=== PATIENT | female | born 1970 | race Caucasian/White ===

== ENCOUNTER 2016-08-27 05:54 | Emergency (ER) | payer OTHER ==
[~2016-08-27 05:54] MED LIST: IBUPROFEN600 MG PO; IMODIUM A-D2 MG PO; LEVEMIR FL100 UNIT/M SC; LISINOPRIL10 MG PO; LOPRESSOR25 MG PO; MAXALT5 MG PO; NOVOLOG PE100 UNITS/ SC
--- NOTE | 2016-08-27 06:45 | DIAGNOSTIC IMAGING REPORT ---
PROCEDURE: XR HAND 3 OR 4 VIEWS - RIGHT INDICATION: TRAUMA/INJURY TECHNIQUE: Three views. COMPARISON: None. FINDINGS: Osseous structures and joint spaces are normal. IMPRESSION: 1. Normal right hand.
--- NOTE | 2016-08-27 06:46 | ED ORDER SUMMARY ---
..... Patient: SAMMIE OMER OrderSheet [facility] VisitID: [id number] [address] [place] [address] 46y, F Registration Date/Time: 08/27/2016 ORDER SHEET Weight: 104.3 kg (stated) Allergies: Compazine GENERAL ORDERS: Hand 3 or 4V Right Urgent (06:23 08/27/2016 Clarissa CARRILLO) (Ack 6:24 [facility] Tech1) (6:41 Mario) MEDICATION ORDERS: IV FLUIDS: ORDER SHEET NOTES: [Electronically signed by Priscila Forte (07:11 08/27/2016)] [Electronically signed by Lina Gaytan MD (20:59 09/01/2016)] [Electronically locked/signed by Priscila Forte (07:11 08/27/2016)]
--- NOTE | 2016-08-27 06:46 | ED CLINICAL REPORT ---
Clinical Report - Physicians/Mid Levels [facility] [address] [place] [address] 08/27/2016 5:55 Patient: SAMMIE OMER Time Seen: 0611. Arrived- By private vehicle. Historian- patient. HISTORY OF PRESENT ILLNESS Chief Complaint: FALL. Location of injuries- right hand and right knee and left knee. The injury occurred today. (casino). Fell. The patient complains of mild pain in the right lower extremity (knee) and left lower extremity (knee) and moderate pain in the right upper extremity (hand). No blow to the head, neck pain, loss of consciousness or seizure. Not dazed. REVIEW OF SYSTEMS No numbness, dizziness, loss of vision, hearing loss or chest pain. No difficulty breathing, weakness, headache, nausea or abdominal pain. No laceration, fever, vomiting or urinary problems. The patient has no pain on weight bearing. All systems otherwise negative, except as recorded above. PAST HISTORY Problems: Bursitis. Diabetes Mellitus. Sinus Tachycardia. Endometriosis. Degenerative disk disease. Migraine Headache. Hypertension. Additional Surgeries: Ankle. Medications: Metoprolol Tartrate Oral. Lisinopril Oral. Phenergan (Promethazine) Oral. Gabapentin Oral. Allergies: Compazine. SOCIAL HISTORY Never smoker. No alcohol use or drug use. ADDITIONAL NOTES The nursing notes have been reviewed. PHYSICAL EXAM Vital Signs: 08/27/2016 06:14 BP: 162/83. HR: 91. RR: 20. O2 saturation: 98%. Temp: 97.7 F. Pain level now: 8/10. Have been reviewed. Appearance: Alert. Oriented X3. No acute distress. Head: Head non-tender. No swelling of head. Eyes: Pupils equal, round and reactive to light. EOM intact. ENT: No dental injury. Neck: Painless ROM. Non-tender. CVS: Heart sounds normal. Pulses normal. Respiratory: Breath sounds normal. Chest nontender. Abdomen: No visible injury. Soft and nontender. Back: No tenderness. ROM normal. Skin: Skin warm and dry. Normal skin color. Normal skin turgor. Extremities: Right hand: mild tenderness and swelling localized to the thenar area of the hand. Neurovascular intact distally. No erythema, laceration, abrasion, ecchymosis or puncture wound. No foreign body or deformity. (Pt has slight abrasions on both knees, with no deformity or edema. She ambulates to the bathroom without difficulty in the ED.). Neuro: No motor deficit. No sensory deficit. (Alert, grossly oriented.). LABS, X-RAYS, AND EKG Rt Hand X-ray: No fracture. Normal alignment. No bony lesion, air in the soft tissue or foreign body. Soft tissues normal. Joint spaces normal. Views: AP, lateral and oblique. Technique: good. The X-rays were independently viewed by me and interpreted contemporaneously by me. Prior films were not available for comparison. Pulse Oximetry: 08/27/2016 06:14 O2 saturation: 98%. (FIO2 - room air). Interpretation: normal. PROGRESS AND PROCEDURES Course of Care: R hand x-ray was negative. No evidence of serious injury. Patient counseled in person regarding the patient's stable condition, test results, diagnosis and need for follow-up. Concerns were addressed. Old medical records reviewed. Disposition: Discharged. Condition: stable. CLINICAL IMPRESSION Multiple contusions to the right hand and right knee. Fall on same level by stumbling. INSTRUCTIONS (Your x-rays look great. Your knee shows no signs of being broken. Please use ice, ibuprofen and Tylenol, as needed for discomfort.). Warnings: GENERAL WARNINGS: Return or contact your physician immediately if your condition worsens or changes unexpectedly, if not improving as expected, or if other problems arise. Your Current Medications: CONTINUE TAKING THE FOLLOWING MEDICATIONS: Gabapentin Oral. Lisinopril Oral. Metoprolol Tartrate Oral. Phenergan (Promethazine) Oral. Follow-up: Follow up with your doctor as needed. Understanding of the discharge instructions verbalized by patient. (Electronically signed by Lina Gaytan MD 09/01/2016 20:59)
--- NOTE | 2016-08-27 06:46 | ED ORDER SUMMARY ---
..... Patient: SAMMIE OMER OrderSheet [facility] VisitID: [id number] [address] [place] [address] 46y, F Registration Date/Time: 08/27/2016 ORDER SHEET Weight: 104.3 kg (stated) Allergies: Compazine GENERAL ORDERS: Hand 3 or 4V Right Urgent (06:23 08/27/2016 Clarissa CARRILLO) (Ack 6:24 [facility] Tech1) (6:41 Mario) MEDICATION ORDERS: IV FLUIDS: ORDER SHEET NOTES: [Electronically signed by Priscila Forte (07:11 08/27/2016)] [Electronically signed by Lina Gaytan MD (20:59 09/01/2016)] [Electronically locked/signed by Priscila Forte (07:11 08/27/2016)]
--- NOTE | 2016-08-27 06:46 | ED NURSING NOTES ---
Clinical Report - Nurses [facility] [address] [place] [address] 08/27/2016 5:55 [id number] TRI[facility] Triage time 06:03 Aug 27 2016. Chief Complaint: FALL while walking. 06:04 08/27/16. --06:04 Priscila Forte Acuity: LEVEL 3. 06:18 08/27/16. SEPSIS SCREEN: Sepsis Screen: negative. Negative (no infection suspected/documented). POOJA COMA SCORE: [place] Coma Scale: 15- eyes open spontaneously (4); best verbal response- oriented x 4 (5); best motor response- obeys commands (6). --06:18 Priscila Forte 06:14 08/27/16. BP: 162/83. HR: 91. RR: 20. O2 saturation: 98% on room air. Temp: 97.7 F (oral). Pain level now: 03/04. --06:18 Priscila Forte. Weight: 104.3 kg stated. Height/Length: 62 inches Per Patient. BMI: 42.1. --06:17 Priscila Forte. Medications Gabapentin Oral. --06:15 Priscila Forte Phenergan (Promethazine) Oral. --06:15 Priscila Forte Lisinopril Oral. --06:16 Priscila Forte Metoprolol Tartrate Oral. --06:16 Priscila Forte. Medication/allergy information source: the patient. --06:18 Priscila Forte. Allergies Compazine. --07:08 Priscila Forte. History Arrived by private vehicle. Historian: patient. Unaccompanied. Location of injuries: right hand and right knee. This occurred just prior to arrival. Occurred (Leroy). --06:04 Priscila Forte ( While RN trying to triage patient taking phone calls and then ambulated to restroom. Patient in restroom for extended period. Patient returned to triage room and RN completed intake.). --06:13 Priscila Forte This occurred last night. ( Patient states that she was walking when she tripped and fell onto her knees with right hand extended. She reports injuries to her knees and right hand). PAST MEDICAL HX: Immunizations: up-to-date. Last normal menstrual period- September. SOCIAL HX: Never smoker. No alcohol use or drug use. No infectious disease exposure. ABUSE ASSESSMENT: No report of abuse. FALL RISK ASSESSMENT: Fall risk assessment completed. No fall risk identified. NUTRITIONAL RISK ASSESSMENT: The nutritional risk assessment revealed no deficiencies. FUNCTIONAL ASSESSMENT: Functional assessment: no impairments noted. LEARNING NEEDS ASSESSMENT: The learning needs assessment revealed no barriers. SKIN INTEGRITY ASSESSMENT: Skin integrity risk assessment completed. No skin integrity risk identified. --06:18 Priscila Forte. Interventions ID band on patient. To treatment room. --06:18 Priscila Foret. PHYSICAL ASSESSMENT Ambulatory to room. GENERAL / NEURO / PSYCH: Alert. Oriented X 4. Appears in no acute distress. RESPIRATORY: Respirations not labored. EXTREMITIES: Right hand: tenderness. Right knee: tenderness. SKIN: Skin is warm and dry. --06:18 Priscila Forte. NURSING PROGRESS NOTES 06:19 08/27/16. Cold pack applied. Reassurance given to the patient. Two patient identifiers checked. Call light placed in reach. Side rails up x 1. Bed placed in lowest position. Brakes of bed on. Patient ready for evaluation- chart flagged. --06:19 Priscila Forte. DISPOSITION / DISCHARGE 07:07 08/27/16. Condition at departure: stable. Learning barriers present. Ability to learn limited by poor cooperation. Learning barriers note: Patient falling asleep during discharge teaching. Patient verbalized understanding. Written instructions provided in [place] Verdean. ( Take Motrin or Tylenol and ice affected extremity. Follow up with PCP as needed.). The patient was discharged by the physician. She was discharged home and accompanied by pediatric licensed practical nurse. She left the Emergency Department ambulatory and via private vehicle. Fifth Hand driving. --07: Priscila Forte 07:05 08/27/16. BP: 142/80. HR: 84. RR: 20. O2 saturation: 97% on room air. Temp: deferred. Pain level now: 03/04. --07:07 Priscila Foret. Locked/Released at 08/27/2016 7:11 by Priscila Forte,
--- NOTE | 2016-08-27 06:46 | ED NURSING NOTES ---
Clinical Report - Nurses [facility] [address] [place] [address] 08/27/2016 5:55 [id number] TRI[facility] Triage time 06:03 Aug 27 2016. Chief Complaint: FALL while walking. 06:04 08/27/16. --06:04 Priscila Forte Acuity: LEVEL 3. 06:18 08/27/16. SEPSIS SCREEN: Sepsis Screen: negative. Negative (no infection suspected/documented). POOJA COMA SCORE: [place] Coma Scale: 15- eyes open spontaneously (4); best verbal response- oriented x 4 (5); best motor response- obeys commands (6). --06:18 Priscila Forte 06:14 08/27/16. BP: 162/83. HR: 91. RR: 20. O2 saturation: 98% on room air. Temp: 97.7 F (oral). Pain level now: 03/04. --06:18 Priscila Forte. Weight: 104.3 kg stated. Height/Length: 62 inches Per Patient. BMI: 42.1. --06:17 Priscila Forte. Medications Gabapentin Oral. --06:15 Priscila Forte Phenergan (Promethazine) Oral. --06:15 Priscila Forte Lisinopril Oral. --06:16 Priscila Forte Metoprolol Tartrate Oral. --06:16 Priscila Forte. Medication/allergy information source: the patient. --06:18 Priscila Forte. Allergies Compazine. --07:08 Priscila Forte. History Arrived by private vehicle. Historian: patient. Unaccompanied. Location of injuries: right hand and right knee. This occurred just prior to arrival. Occurred (Leroy). --06:04 Priscila Forte ( While RN trying to triage patient taking phone calls and then ambulated to restroom. Patient in restroom for extended period. Patient returned to triage room and RN completed intake.). --06:13 Priscila Forte This occurred last night. ( Patient states that she was walking when she tripped and fell onto her knees with right hand extended. She reports injuries to her knees and right hand). PAST MEDICAL HX: Immunizations: up-to-date. Last normal menstrual period- September. SOCIAL HX: Never smoker. No alcohol use or drug use. No infectious disease exposure. ABUSE ASSESSMENT: No report of abuse. FALL RISK ASSESSMENT: Fall risk assessment completed. No fall risk identified. NUTRITIONAL RISK ASSESSMENT: The nutritional risk assessment revealed no deficiencies. FUNCTIONAL ASSESSMENT: Functional assessment: no impairments noted. LEARNING NEEDS ASSESSMENT: The learning needs assessment revealed no barriers. SKIN INTEGRITY ASSESSMENT: Skin integrity risk assessment completed. No skin integrity risk identified. --06:18 Priscila Forte. Interventions ID band on patient. To treatment room. --06:18 Priscila Forte. PHYSICAL ASSESSMENT Ambulatory to room. GENERAL / NEURO / PSYCH: Alert. Oriented X 4. Appears in no acute distress. RESPIRATORY: Respirations not labored. EXTREMITIES: Right hand: tenderness. Right knee: tenderness. SKIN: Skin is warm and dry. --06:18 Priscila Forte. NURSING PROGRESS NOTES 06:19 08/27/16. Cold pack applied. Reassurance given to the patient. Two patient identifiers checked. Call light placed in reach. Side rails up x 1. Bed placed in lowest position. Brakes of bed on. Patient ready for evaluation- chart flagged. --06:19 Priscila Forte. DISPOSITION / DISCHARGE 07:07 08/27/16. Condition at departure: stable. Learning barriers present. Ability to learn limited by poor cooperation. Learning barriers note: Patient falling asleep during discharge teaching. Patient verbalized understanding. Written instructions provided in Niuean. ( Take Motrin or Tylenol and ice affected extremity. Follow up with PCP as needed.). The patient was discharged by the physician. She was discharged home and accompanied by enrollment coordinator. She left the Emergency Department ambulatory and via private vehicle. Concrete Mixer Truck Driver driving. --07: Priscila Forte 07:05 08/27/16. BP: 142/80. HR: 84. RR: 20. O2 saturation: 97% on room air. Temp: deferred. Pain level now: 03/04. --07:07 Priscila Fotre. Locked/Released at 08/27/2016 7:11 by Priscila Forte,
--- NOTE | 2016-09-01 21:00 | ED MED RECONCILIATION SUMMARY ---
Patient: SHEILA OMERMARCELLA Greer Medication Reconciliation Report [facility] VisitID: [id number] [address] [place] [address] 46y, F Registration Date/Time: 08/27/2016 Weight: 104.3 kg Height/Length: 62 in. BMI: 42.1 ALLERGIES: Compazine The patient's Home Medications are listed below: CONTINUE TAKING THE FOLLOWING MEDICATIONS: Gabapentin Oral Lisinopril Oral Metoprolol Tartrate Oral Phenergan (Promethazine) Oral The source(s) of the original Home Medication information: patient The following Medications were given to the patient in the Emergency Department: None. The following Medications were prescribed to the patient: None.
--- NOTE | 2016-09-01 21:00 | ED DISCHARGE INSTRUCTIONS ---
Patient: SAMMIE OMER General Instructions [facility] VisitID: [id number] [place] [address] 46y, F Registration Date/Time: 08/27/2016 Multiple contusions to the right hand and right knee. Fall on same level by stumbling. INSTRUCTIONS (Your x-rays look great. Your knee shows no signs of being broken. Please use ice, ibuprofen and Tylenol, as needed for discomfort.). Warnings: GENERAL WARNINGS: Return or contact your physician immediately if your condition worsens or changes unexpectedly, if not improving as expected, or if other problems arise. Your Current Medications: CONTINUE TAKING THE FOLLOWING MEDICATIONS: Gabapentin Oral. Lisinopril Oral. Metoprolol Tartrate Oral. Phenergan (Promethazine) Oral. Follow-up: Follow up with your doctor as needed. Understanding of the discharge instructions verbalized by patient. ADDITIONAL INFORMATION Mechanical Fall You have had a fall today. It appears that the cause is mechanical. That means that you slipped, tripped or lost your balance. If your fall had been due to fainting or a seizure, further tests would be required. Home Care: Rest today and resume your normal activities when you are feeling back to normal. If you were injured during the fall, follow the advice from your doctor regarding care of your injury. You may use acetaminophen (Tylenol) or ibuprofen (Motrin, Advil) to control pain, unless another pain medicine was prescribed. [NOTE: If you have chronic liver or kidney disease or ever had a stomach ulcer or GI bleeding, talk with your doctor before using these medicines.] Fall Prevention: Was there anything that caused your fall that can be fixed, removed, or replaced? Make your home safe by keeping walkways clear of objects you may trip over. Use non-slip pads under rugs. Do not walk in poorly lit areas. Do not stand on chairs or wobbly ladders. Use caution when reaching overhead or looking upward. This position can cause a loss of balance. Be sure your shoes fit properly, have non-slip bottoms and are in good condition. Be cautious when going up and down curbs, and walking on uneven sidewalks. If your balance is poor, consider using a cane or walker. Stay as active as you can. Balance, flexibility, strength, and endurance all come from exercise. They all play a role in preventing falls. Follow Up with your doctor or as advised by our staff. Get Prompt Medical Attention if any of the following occur: Repeated mechanical falls, or unexplained falls Dizziness, fainting or seizure Severe headache Chest pain or shortness of breath Palpitations (very rapid or very slow or irregular heartbeat) Blood in vomit, stools (black or red color) Weakness of an arm or leg or one side of the face Difficulty with speech or vision You have been given the following additional information: Fall, Mechanical (Electronically signed by Lina Gaytan MD 09/01/2016 20:59)
--- NOTE | 2016-09-01 21:00 | ED MAR SUMMARY ---
..... Medication Administration Record [facility] [address] [place], [place] [id number] Patient: SAMMIE OMER Visit ID: [id number] 46y, F Weight: 104.3 kg Height/Length: 62 in BMI: 42.1 ALLERGIES: Compazine
--- NOTE | 2016-09-01 21:00 | ED MED RECONCILIATION SUMMARY ---
Patient: SHEILA OMERMARCELLA Greer Medication Reconciliation Report [facility] VisitID: [id number] [address] [place] [address] 46y, F Registration Date/Time: 08/27/2016 Weight: 104.3 kg Height/Length: 62 in. BMI: 42.1 ALLERGIES: Compazine The patient's Home Medications are listed below: CONTINUE TAKING THE FOLLOWING MEDICATIONS: Gabapentin Oral Lisinopril Oral Metoprolol Tartrate Oral Phenergan (Promethazine) Oral The source(s) of the original Home Medication information: patient The following Medications were given to the patient in the Emergency Department: None. The following Medications were prescribed to the patient: None.
--- NOTE | 2016-09-01 21:00 | ED MAR SUMMARY ---
..... Medication Administration Record [facility] [address] [place], [place] [id number] Patient: SAMMIE OMER Visit ID: [id number] 46y, F Weight: 104.3 kg Height/Length: 62 in BMI: 42.1 ALLERGIES: Compazine
== END 2016-08-27 07:05 | disposition home or self-care (01) ==
LOC: ED SRH 05:54
DX: S80.01XA Contusion of right knee, initial encounter (principal); S60.221A Contusion of right hand, initial encounter; W01.0XXA Fall on same level from slipping, tripping and stumbling without subsequent striking against object, initial encounter; Y93.9 Activity, unspecified; Y99.9 Unspecified external cause status; Y92.59 Other trade areas as the place of occurrence of the external cause; Z79.899 Other long term (current) drug therapy

== ENCOUNTER 2016-11-15 01:48 | Emergency (ER) | payer OTHER ==
--- NOTE | 2016-11-15 03:54 | ED NURSING NOTES ---
Clinical Report - Nurses Merged [facility] [address] [place] [address] 11/15/2016 1:48 Patient: SAMMIE OMER TRIAGE Triage time 01:54. Acuity: LEVEL 3. Chief Complaint: (hypertension). J[place] COMA SCORE: [place] Coma Scale: 15- eyes open spontaneously (4); best verbal response- oriented x 4 (5); best motor response- obeys commands (6). --02:01 Primo Olvera 01:54 11/15/16. BP: 183/90. HR: 105. RR: 18. O2 saturation: 97%. Temp: 98.4 F. Pain level now: 11/02. --02:01 Primo Olvera Weight: 108.8 kg. Height/Length: 62 inches. BMI: 43.9. --01:57 Kam Olvera. Medications Gabapentin Oral. Lisinopril Oral. Metoprolol Tartrate Oral. Phenergan (Promethazine) Oral. --01:56 Kam Olvera. Allergies Compazine. --01:55 Kam Olvera. History Arrived by private vehicle. Historian: patient. Accompanied by family. This is a recurrent problem. (3 days). Treatment ENGINEER: None. PAST MEDICAL HX: Immunizations: up-to-date. SOCIAL HX: Never smoker. No alcohol use or drug use. No infectious disease exposure. SELF HARM ASSESSMENT: A self harm assessment was performed. The patient answered "no" to the question "Have you recently felt down, depressed, or hopeless?", "Have you noticed less interest or pleasure in doing things?", "Do you have thoughts of harming or killing yourself?", "Are you here because you tried to hurt yourself?", "Have you ever tried to hurt yourself before today?", "Have you recently had thoughts about harming or killing others?" and "Do you have any dangerous items in your possession?". FALL RISK ASSESSMENT: Fall risk assessment completed. No fall risk identified. NUTRITIONAL RISK ASSESSMENT: The nutritional risk assessment revealed no deficiencies. FUNCTIONAL ASSESSMENT: Functional assessment: no impairments noted. LEARNING NEEDS ASSESSMENT: The learning needs assessment revealed no barriers. ABUSE ASSESSMENT: Abuse assessment: The patient was asked "Do you feel safe in your home?". SKIN INTEGRITY ASSESSMENT: Skin integrity risk assessment completed. No skin integrity risk identified. --02:01 Primo Olvera PROBLEMS: Contusion. Fall. Bursitis. Diabetes Mellitus. Sinus Tachycardia. Endometriosis. Degenerative disk disease. Migraine Headache. Hypertension. --01:56 Kam Olvera. ADDITIONAL SURGERIES: Ankle. --01:56 Kam Olvera. Interventions ID band on patient. To treatment room. --02: Primo Olvera PHYSICAL ASSESSMENT Ambulatory to room. GENERAL / NEURO / PSYCH: Alert. Oriented X 4. Appears in no acute distress. HEENT: Pupils equal, round and reactive to light. No facial asymmetry noted. Mucous membranes are pink. RESPIRATORY: Respirations not labored. Chest nontender. Breath sounds within normal limits. CVS: Normal sinus rhythm noted. Capillary refill less than 2 seconds. Pulses within normal limits. GI / : Abdomen soft and nontender and normal bowel sounds. SKIN: Skin intact. Skin is warm and dry. Normal skin turgor. --02:02 Primo Olvera NURSING PROGRESS NOTES hall monitor, pulse oximeter and NIBP monitor placed on patient. Patient gowned. Patient identifiers checked. Call light placed in reach. Side rails up x 1. Bed placed in lowest position. Brakes of bed on. --02:02 Primo Olvera 02:14 11/15/2016 Site #1 started via IV in the left antecubital space with an 20g angiocath, with aseptic technique and good blood return; one attempt. Blood drawn: rainbow set. Labeled in the presence of the patient and sent to the lab. Saline lock flushed with 10 mL saline. --02:14 Priscila Forte EKG time: (02:15). EKG was performed by a nurse and shown to the ED physician. --02:15 Primo Olvera 02:16 11/15/16. BP: 154/85. HR: 94. RR: 18. O2 saturation: 95%. Temp: deferred. Pain level now: 11/02. --02:16 Primo Olvera ( ice chips given to pt). --03:24 Primo Olvera ( pt now complains of nausea took ice chips away from pt, orders received from ). --03:27 Primo Olvera 03:36 11/15/2016 Morphine IVP 4 mg given over 2 minute(s) via site #1. Allergies verified, confirmed 5 rights and sedative warning given to the patient. IV patency established. IV site checked: no pain, redness, or swelling. IV flushed thoroughly pre- and post-medication administration. IVP given by RN. --03:36 Primo Olvera 03:36 11/15/2016 PHENERGAN (Promethazine HCl) IVP 25 mg given over 2 minute(s) via site #1. Allergies verified and confirmed 5 rights. IV patency established. IV site checked: no pain, redness, or swelling. IV flushed thoroughly pre- and post-medication administration. IVP given by RN. --03:37 Primo Olvera 03:40 11/15/16. BP: 155/94. HR: 89. RR: 16. O2 saturation: 95%. Temp: deferred. --03:41 Primo Olvera DISPOSITION / DISCHARGE 04:08 11/15/2016 Site #1 removed upon discharge. Catheter intact. Bandaid applied. --04:08 Primo Olvera Departure time: 04:05. Condition at departure: improved. No learning barriers present. Discharge instructions provided and reviewed with the patient. Patient verbalized understanding. Written instructions provided in Spanish. No warning instructions, medication instructions, treatment instructions, referrals given to the patient or diet instructions. No activity restrictions, note given, follow up contact number given or stop smoking instructions. The patient was discharged by the physician. She was discharged home and accompanied by plane tender. She left the Emergency Department ambulatory and via private vehicle. Unmanned Equipment Operator driving. FALL RISK ASSESSMENT: Fall risk assessment completed. No fall risk identified. --04:09 Primo Olvera 04:07 11/15/16. BP: 157/96. HR: 88. RR: 16. O2 saturation: 95%. Temp: deferred. Pain level now: 0/10. --04:09 Primo Olvera Locked/Released at 11/15/2016 4:09 by Primo Olvera
--- NOTE | 2016-11-15 03:54 | ED ORDER SUMMARY ---
..... Patient: SAMMIE OMER OrderSheet [facility] VisitID: [id number] [address] [place] [address] 46y, F Registration Date/Time: 11/15/2016 ORDER SHEET Weight: 108.8 kg Allergies: Compazine GENERAL ORDERS: CBC w Diff Urgent (02:21 11/15/2016 TBowen R.N. per protocol) (2:22 TBowen R.N.) CMP Urgent (02:11/15/2016 TBowen R.N. per protocol) (2:22 TBowen R.N.) Troponin-I Urgent (02:11/15/2016 TBowen R.N. per protocol) (2:22 TBowen R.N.) Pulse oximeter (02:11/15/2016 TBowen R.N. per protocol) (2:22 TBowen R.N.) EKG - ER Stat (02:11/15/2016 TBowen R.N. per protocol) (2:22 TBowen R.N.) Chest 2V Urgent (02:23 11/15/2016 Megan Jurado) (Ack 2:24 AMcQuoid ER Tech1) (2:30 RFay) D-Dimer Urgent (02:46 11/15/2016 Megan Jurado) (2:47 AMcQuoid ER Tech1) MEDICATION ORDERS: Phenergan IV 25 mg (HIGH ALERT MEDICATION, NOW) (03:25 11/15/2016 Megan Jurado) (3:37 TBowen R.N.) IV FLUIDS: Morphine IV 4 mg (HIGH ALERT MEDICATION, NOW) (03:25 11/15/2016 Megan Jurado) (3:36 TBowen R.N.) ORDER SHEET NOTES: [Electronically signed by Marysol Gomez R.N. (04:09 11/15/2016)] [Electronically signed by Angel Luis Cardenas Dr. (21:42 11/21/2016)] [Electronically locked/signed by Marysol Gomez R.N. (04:09 11/15/2016)]
--- NOTE | 2016-11-15 03:54 | ED ORDER SUMMARY ---
..... Patient: SAMMIE OMER OrderSheet [facility] VisitID: [id number] [address] [place] [address] 46y, F Registration Date/Time: 11/15/2016 ORDER SHEET Weight: 108.8 kg Allergies: Compazine GENERAL ORDERS: CBC w Diff Urgent (02:21 11/15/2016 TBowen R.N. per protocol) (2:22 TBowen R.N.) CMP Urgent (02:11/15/2016 TBowen R.N. per protocol) (2:22 TBowen R.N.) Troponin-I Urgent (02:11/15/2016 TBowen R.N. per protocol) (2:22 TBowen R.N.) Pulse oximeter (02:11/15/2016 TBowen R.N. per protocol) (2:22 TBowen R.N.) EKG - ER Stat (02:11/15/2016 TBowen R.N. per protocol) (2:22 TBowen R.N.) Chest 2V Urgent (02:23 11/15/2016 Megan Jurado) (Ack 2:24 AMcQuoid ER Tech1) (2:30 RFay) D-Dimer Urgent (02:46 11/15/2016 Megan Jurado) (2:47 AMcQuoid ER Tech1) MEDICATION ORDERS: Phenergan IV 25 mg (HIGH ALERT MEDICATION, NOW) (03:25 11/15/2016 Megan Jurado) (3:37 TBowen R.N.) IV FLUIDS: Morphine IV 4 mg (HIGH ALERT MEDICATION, NOW) (03:25 11/15/2016 Megan Jurado) (3:36 TBowen R.N.) ORDER SHEET NOTES: [Electronically signed by Marysol Gomez R.N. (04:09 11/15/2016)] [Electronically signed by Angel Luis Cardenas Dr. (21:42 11/21/2016)] [Electronically locked/signed by Marysol Gomez R.N. (04:09 11/15/2016)]
--- NOTE | 2016-11-15 03:54 | ED CLINICAL REPORT ---
Clinical Report - Physicians/Mid Levels [facility] [address] [place] [address] 11/15/2016 1:48 Patient: SAMMIE OMER Time Seen: 0215. Arrived- By private vehicle. Historian- patient. HISTORY OF PRESENT ILLNESS Chief Complaint: CHEST PAIN. At its maximum, severity described as mild. When seen in the E.D., severity described as mild. Modifying factors. Not worsened by anything. Not relieved by anything. This started past several days and is still present (unchanged). It was abrupt in onset and has been constant but is not gone now. Onset during rest. It is described as pressure and it is described as located in the central chest area. No radiation. No nausea, vomiting, difficulty breathing or diaphoresis. No additional chest pain. (no hemoptysis, recent surgeries/trauma, or unilateral leg swelling.). Similar symptoms previously: None. Recent medical care: Not recently seen/assessed. REVIEW OF SYSTEMS No fever, chills, pedal edema or calf pain. All systems otherwise negative, except as recorded above. PAST HISTORY See nurses notes. Denies the following risk factors for DVT/PE - history of DVT and pulmonary embolism, recent surgery, recent [place] and congestive heart failure. Denies the following risk factors for DVT/PE - cancer, clotting disorder, estrogens, obesity and immobility. Denies the following risk factors for DVT/PE - advanced in age and vena cava filter. SOCIAL HISTORY Never smoker. No alcohol use or drug use. No recent travel. Is a local resident. FAMILY HISTORY History of heart disease (no early family history). ADDITIONAL NOTES The nursing notes have been reviewed. PHYSICAL EXAM Vital Signs: 11/15/2016 02:16 BP: 154/85. HR: 94. RR: 18. O2 saturation: 95%. Pain level now: 11/02. 11/15/2016 01:54 BP: 183/90. HR: 105. RR: 18. O2 saturation: 97%. Temp: 98.4 F. Pain level now: 11/02. Blood pressure normal. Oxygen saturation normal. Appearance: Alert. Oriented X3. No acute distress. Eyes: Pupils equal, round and reactive to light. Eyes normal inspection. ENT: Ears normal. Nose normal. Pharynx normal. Neck: Normal inspection. Neck supple. No JVD. CVS: Normal heart rate and rhythm. Heart sounds normal. Pulses normal. No decreased pulses. Respiratory: No respiratory distress. Breath sounds normal. Chest nontender. No rales, rhonchi or wheezes. Abdomen: Soft and nontender. Bowel sounds normal. No organomegaly. No mass. Back: Normal external inspection. Skin: Skin warm and dry. Normal skin color. No rash. Normal skin turgor. Extremities: Extremities exhibit normal ROM. No lower extremity edema. Neuro: Oriented X 3. No motor deficit. No sensory deficit. LABS, X-RAYS, AND EKG EKG: Narrow-complex tachycardia (108). Sinus tachycardia. Normal P waves. Normal MARIELLE. Normal QRS complex. Normal axis. Normal ST and T waves, QT and QTc. Normal EKG. The study has been interpreted contemporaneously. The study has been independently viewed by me. The EKG appears to be a good tracing. Chest X-ray: Normal Chest X-Ray. Laboratory Tests: CBC w Diff: (JESSE: 11/15/2016 02:00) ( MsgRcvd 11/15/2016 02:31) Final results Test Result Flag Units (Reference) WHITE BLOOD COUNT 8.9 K/uL (4.5-11.5) RED BLOOD COUNT 4.62 M/uL (4.00-5.20) HEMOGLOBIN 13.5 gm/dL (12.0-16.0) HEMATOCRIT 40.7 % (36.0-46.0) MEAN CELL VOLUME 88 fL (80-100) MEAN CORPUSCULAR HGB 29 pg (26-34) MEAN CORPUSCULAR HGB CONC 33 g/dL (31-37) RED CELL DISTRIBUTION WIDTH 14.1 % (11.6-14.8) PLATELET COUNT 311 K/uL (150-400) NEUTROPHIL % 55.6 % (50-75) LYMPH % 34.5 % (25-40) MONO % 8.5 % (3-14) EOSINOPHIL % 1.2 % (0-4) BASOPHIL % 0.2 % (0-2) [id number]: (JESSE: 11/15/2016 02:00) ( MsgRcvd 11/15/2016 02:59) Final results Test Result Flag Units (Reference) D-DIMER QUANTITATIVE < 0.27 L ug/mLFEU (0.27-0.52) The primary value of this quantitative assay relates toits negative predictive value (i.e. exclusion) of pulmonaryembolism/deep vein thrombosis/DIC.Elevated levels of d-dimer may also occur with:, age, cancer, inflammation, liver disease,post-op, infection, hematoma, coronary disease, peripheralarteriopathy, bleeding disorders and thrombolytic treatment.Results should be correlated with other clinical andradiological data.Testing Methodology: Latex Immunoassay CMP: (JESSE: 11/15/2016 02:00) ( MsgRcvd 11/15/2016 02:47) Final results Test Result Flag Units (Reference) GLUCOSE 161 H mg/dL (70-110) BUN 17 mg/dL (7-18) CREATININE 0.8 mg/dL (0.6-1.3) Estimated GFR >60 mL/min Estimated GFR- >60 mL/min Note: Persistent reduction over 3 months in eGFR<60 mL/min/1.73 m2 defines CKD. Patients with eGFR values>=60 mL/min/1.73 m2 may also have CKD if evidence ofpersistent proteinuria. Additional information may be foundat [email or web address].org. SODIUM 140 mmol/L (136-145) POTASSIUM 3.5 mmol/L (3.5-5.1) CHLORIDE 102 mmol/L (98-107) CARBON DIOXIDE 27 mmol/L (21-32) CALCIUM 9.3 mg/dL (8.5-10.1) TOTAL PROTEIN 8.2 g/dL (6.4-8.2) ALBUMIN 4.0 g/dL (3.3-5.0) BILIRUBIN, TOTAL 0.8 mg/dL (0.0-1.0) ALKALINE PHOSPHATASE 125 H U/L (46-116) AST (SGOT) 16 U/L (15-37) ALT (SGPT) 32 U/L (12-78) TROPONIN I <0.05 L ng/mL (0.00-1.5) TROPONIN REFERENCE RANGE:<0.1 NEGATIVE0.1-1.5 INDETERMINANT>1.5 POSITIVE . PROGRESS AND PROCEDURES Course of Care: the patient is a pleasant 46-year-old no presented for evaluation of chest pain. patient at low risk for AMI. Patient to be evaluated for AMI, PE, thoracic AA, pneumonia, and peumothorax. Patient agreeable to the treatment and plan. Offers of pain medications made. Trop x 1 needed based on time course of illness. Patient work up is negative. D-dimer noted to be negative. Trop negative. No other acute abnormalities. Patient with improved vitals while here in the ED. Patient also with resolved pain. Do not feel patient has an acute abnormality requiring admission to the hospital or further ED work up. patient instructed to follow up with cardiology for further risk stratification. Patient stable outpatient candidate. Reevaluation continues to be benign. CLINICAL IMPRESSION Chest pain characterized as "pressure" .12 lead EKG performed. 11/15/2016 03:40 BP: 155/94. HR: 89. RR: 16. O2 saturation: 95%. Blood pressure normal. Oxygen saturation normal. Essential hypertension (acute). INSTRUCTIONS Warnings: GENERAL WARNINGS: Return or contact your physician immediately if your condition worsens or changes unexpectedly, if not improving as expected, or if other problems arise. SPECIFICALLY, return if you develop chest, neck, jaw, shoulder, arm, or back pain, difficulty breathing, a fluttering sensation in your chest, lightheadedness, fainting, excessive fatigue, or sudden sweating. Your Current Medications: CONTINUE TAKING THE FOLLOWING MEDICATIONS: Gabapentin Oral. Lisinopril Oral. Metoprolol Tartrate Oral. Phenergan (Promethazine) Oral. Follow-up: Return to the emergency department as needed. Follow up with your doctor in three days. Reason for referral: recheck today's concerns. Summary of care provided to patient via paper. Screening today revealed the patient's blood pressure to be in the hypertensive range. Blood pressure screening was not performed during this visit because the patient has an active diagnosis of hypertension. The patient should follow up with a primary care provider for blood pressure management. Understanding of the discharge instructions verbalized by patient. Follow-up with: Alen Pace MD, Cardiology, , [facility], [address], [facility], [address] Follow up in three days. Reason for referral: recheck today's concerns. Summary of care provided to patient via paper. (Electronically signed by Angel Luis Cardenas Dr. 11/21/2016 21:42)
--- NOTE | 2016-11-15 03:54 | ED NURSING NOTES ---
Clinical Report - Nurses [facility] [address] [place] [address] 11/15/2016 1:48 Patient: SAMMIE OMER TRIAGE Triage time 01:54. Acuity: LEVEL 3. Chief Complaint: (hypertension). JOHNSON COMA SCORE: Johnson Coma Scale: 15- eyes open spontaneously (4); best verbal response- oriented x 4 (5); best motor response- obeys commands (6). --02:01 Primo Olvera 01:54 11/15/16. BP: 183/90. HR: 105. RR: 18. O2 saturation: 97%. Temp: 98.4 F. Pain level now: 11/02. --02:01 Primo Olvera Weight: 108.8 kg. Height/Length: 62 inches. BMI: 43.9. --01:57 Kam Olvera. Medications Gabapentin Oral. Lisinopril Oral. Metoprolol Tartrate Oral. Phenergan (Promethazine) Oral. --01:56 Kam Olvera. Allergies Compazine. --01:55 Kam Olvera. History Arrived by private vehicle. Historian: patient. Accompanied by family. This is a recurrent problem. (3 days). Treatment CAPTAIN OF GUARDS: None. PAST MEDICAL HX: Immunizations: up-to-date. SOCIAL HX: Never smoker. No alcohol use or drug use. No infectious disease exposure. SELF HARM ASSESSMENT: A self harm assessment was performed. The patient answered "no" to the question "Have you recently felt down, depressed, or hopeless?", "Have you noticed less interest or pleasure in doing things?", "Do you have thoughts of harming or killing yourself?", "Are you here because you tried to hurt yourself?", "Have you ever tried to hurt yourself before today?", "Have you recently had thoughts about harming or killing others?" and "Do you have any dangerous items in your possession?". FALL RISK ASSESSMENT: Fall risk assessment completed. No fall risk identified. NUTRITIONAL RISK ASSESSMENT: The nutritional risk assessment revealed no deficiencies. FUNCTIONAL ASSESSMENT: Functional assessment: no impairments noted. LEARNING NEEDS ASSESSMENT: The learning needs assessment revealed no barriers. ABUSE ASSESSMENT: Abuse assessment: The patient was asked "Do you feel safe in your home?". SKIN INTEGRITY ASSESSMENT: Skin integrity risk assessment completed. No skin integrity risk identified. --02:01 Primo Olvera PROBLEMS: Contusion. Fall. Bursitis. Diabetes Mellitus. Sinus Tachycardia. Endometriosis. Degenerative disk disease. Migraine Headache. Hypertension. --01:56 Kam Olvera. ADDITIONAL SURGERIES: Ankle. --01:56 Kam Olvera. Interventions ID band on patient. To treatment room. --02: Primo Olvera PHYSICAL ASSESSMENT Ambulatory to room. GENERAL / NEURO / PSYCH: Alert. Oriented X 4. Appears in no acute distress. HEENT: Pupils equal, round and reactive to light. No facial asymmetry noted. Mucous membranes are pink. RESPIRATORY: Respirations not labored. Chest nontender. Breath sounds within normal limits. CVS: Normal sinus rhythm noted. Capillary refill less than 2 seconds. Pulses within normal limits. GI / : Abdomen soft and nontender and normal bowel sounds. SKIN: Skin intact. Skin is warm and dry. Normal skin turgor. --02:02 Primo Olvera NURSING PROGRESS NOTES boat joiner, pulse oximeter and NIBP monitor placed on patient. Patient gowned. Patient identifiers checked. Call light placed in reach. Side rails up x 1. Bed placed in lowest position. Brakes of bed on. --02:02 Primo Olvera 02:14 11/15/2016 Site #1 started via IV in the left antecubital space with an 20g angiocath, with aseptic technique and good blood return; one attempt. Blood drawn: rainbow set. Labeled in the presence of the patient and sent to the lab. Saline lock flushed with 10 mL saline. --02:14 Priscila Forte EKG time: (02:15). EKG was performed by a nurse and shown to the ED physician. --02:15 Primo Olvera 02:16 11/15/16. BP: 154/85. HR: 94. RR: 18. O2 saturation: 95%. Temp: deferred. Pain level now: 11/02. --02:16 Primo Olvera ( ice chips given to pt). --03:24 Primo Olvera ( pt now complains of nausea took ice chips away from pt, orders received from ). --03:27 Primo Olvera 03:36 11/15/2016 Morphine IVP 4 mg given over 2 minute(s) via site #1. Allergies verified, confirmed 5 rights and sedative warning given to the patient. IV patency established. IV site checked: no pain, redness, or swelling. IV flushed thoroughly pre- and post-medication administration. IVP given by RN. --03:36 Primo Olvera 03:36 11/15/2016 PHENERGAN (Promethazine HCl) IVP 25 mg given over 2 minute(s) via site #1. Allergies verified and confirmed 5 rights. IV patency established. IV site checked: no pain, redness, or swelling. IV flushed thoroughly pre- and post-medication administration. IVP given by RN. --03:37 Primo Olvera 03:40 11/15/16. BP: 155/94. HR: 89. RR: 16. O2 saturation: 95%. Temp: deferred. --03:41 Primo Olvera DISPOSITION / DISCHARGE 04:08 11/15/2016 Site #1 removed upon discharge. Catheter intact. Bandaid applied. --04:08 Primo Olvera Departure time: 04:05. Condition at departure: improved. No learning barriers present. Discharge instructions provided and reviewed with the patient. Patient verbalized understanding. Written instructions provided in Bolivian. No warning instructions, medication instructions, treatment instructions, referrals given to the patient or diet instructions. No activity restrictions, note given, follow up contact number given or stop smoking instructions. The patient was discharged by the physician. She was discharged home and accompanied by oil exploration engineer. She left the Emergency Department ambulatory and via private vehicle. Contracting Officer driving. FALL RISK ASSESSMENT: Fall risk assessment completed. No fall risk identified. --04:09 Primo Olvera 04:07 11/15/16. BP: 157/96. HR: 88. RR: 16. O2 saturation: 95%. Temp: deferred. Pain level now: 0/10. --04:09 Primo Olvera Locked/Released at 11/15/2016 4:09 by Primo Olvera
--- NOTE | 2016-11-15 05:21 | DIAGNOSTIC IMAGING REPORT ---
PROCEDURE: XR CHEST 2 VIEW INDICATION: CHEST PAIN TECHNIQUE: PA and lateral views. COMPARISON: Compared to chest x-ray on 10/12/2015. FINDINGS: Lungs are clear. Heart and mediastinum are normal. Thorax is normal. IMPRESSION: 1. Negative chest.
--- NOTE | 2016-11-21 21:42 | ED MAR SUMMARY ---
..... Medication Administration Record [facility] [address] [place] [address] Patient: SAMMIE OMER Visit ID: [id number] 46y, F Weight: 108.8 kg Height/Length: 62 in BMI: 43.9 ALLERGIES: Compazine Given 03:36 11/15/2016 Wade RHenri Medication Administered: MORPHINE [IVP], Dose: 4 mg IVP over 2 minute(s), Site: #1 left AC. Medication Ordered: Morphine IV 4 mg (HIGH ALERT MEDICATION, NOW). Given 03:36 11/15/2016 Wade R.N. Medication Administered: PHENERGAN [IVP] (PROMETHAZINE HCL), Dose: 25 mg IVP over 2 minute(s), Site: #1 left AC. Medication Ordered: Phenergan IV 25 mg (HIGH ALERT MEDICATION, NOW).
--- NOTE | 2016-11-21 21:42 | ED MAR SUMMARY ---
..... Medication Administration Record [facility] [address] [place] [address] Patient: SAMMIE OMER Visit ID: [id number] 46y, F Weight: 108.8 kg Height/Length: 62 in BMI: 43.9 ALLERGIES: Compazine Given 03:36 11/15/2016 Wade RHenri Medication Administered: MORPHINE [IVP], Dose: 4 mg IVP over 2 minute(s), Site: #1 left AC. Medication Ordered: Morphine IV 4 mg (HIGH ALERT MEDICATION, NOW). Given 03:36 11/15/2016 Wade R.N. Medication Administered: PHENERGAN [IVP] (PROMETHAZINE HCL), Dose: 25 mg IVP over 2 minute(s), Site: #1 left AC. Medication Ordered: Phenergan IV 25 mg (HIGH ALERT MEDICATION, NOW).
--- NOTE | 2016-11-21 21:42 | ED MED RECONCILIATION SUMMARY ---
Patient: SAMMIE OMER Medication Reconciliation Report [facility] VisitID: [id number] [address] [place] [address] 46y, F Registration Date/Time: 11/15/2016 Weight: 108.8 kg Height/Length: 62 in. BMI: 43.9 ALLERGIES: Compazine The patient's Home Medications are listed below: CONTINUE TAKING THE FOLLOWING MEDICATIONS: Gabapentin Oral Lisinopril Oral Metoprolol Tartrate Oral Phenergan (Promethazine) Oral The source(s) of the original Home Medication information: Not obtained. The following Medications were given to the patient in the Emergency Department: Morphine [IVP] IVP 4 mg, administered: 11/15/2016 3:36:00 AM PHENERGAN [IVP] IVP 25 mg, administered: 11/15/2016 3:36:00 AM The following Medications were prescribed to the patient: None.
--- NOTE | 2016-11-21 21:42 | ED MED RECONCILIATION SUMMARY ---
Patient: SAMMIE OMER Medication Reconciliation Report [facility] VisitID: [id number] [address] [place] [address] 46y, F Registration Date/Time: 11/15/2016 Weight: 108.8 kg Height/Length: 62 in. BMI: 43.9 ALLERGIES: Compazine The patient's Home Medications are listed below: CONTINUE TAKING THE FOLLOWING MEDICATIONS: Gabapentin Oral Lisinopril Oral Metoprolol Tartrate Oral Phenergan (Promethazine) Oral The source(s) of the original Home Medication information: Not obtained. The following Medications were given to the patient in the Emergency Department: Morphine [IVP] IVP 4 mg, administered: 11/15/2016 3:36:00 AM PHENERGAN [IVP] IVP 25 mg, administered: 11/15/2016 3:36:00 AM The following Medications were prescribed to the patient: None.
--- NOTE | 2016-11-21 21:42 | ED DISCHARGE INSTRUCTIONS ---
Patient: SAMMIE OMER General Instructions [facility] VisitID: [id number] [place] [address] 46y, F Registration Date/Time: 11/15/2016 Chest pain characterized as "pressure" .12 lead EKG performed. 11/15/2016 03:40 BP: 155/94. HR: 89. RR: 16. O2 saturation: 95%. Blood pressure normal. Oxygen saturation normal. Essential hypertension (acute). INSTRUCTIONS Warnings: GENERAL WARNINGS: Return or contact your physician immediately if your condition worsens or changes unexpectedly, if not improving as expected, or if other problems arise. SPECIFICALLY, return if you develop chest, neck, jaw, shoulder, arm, or back pain, difficulty breathing, a fluttering sensation in your chest, lightheadedness, fainting, excessive fatigue, or sudden sweating. Your Current Medications: CONTINUE TAKING THE FOLLOWING MEDICATIONS: Gabapentin Oral. Lisinopril Oral. Metoprolol Tartrate Oral. Phenergan (Promethazine) Oral. Follow-up: Return to the emergency department as needed. Follow up with your doctor in three days. Reason for referral: recheck today's concerns. Summary of care provided to patient via paper. Screening today revealed the patient's blood pressure to be in the hypertensive range. Blood pressure screening was not performed during this visit because the patient has an active diagnosis of hypertension. The patient should follow up with a primary care provider for blood pressure management. Understanding of the discharge instructions verbalized by patient. Follow-up with: Alen Pace MD, Cardiology, , [facility], [address], [facility], [id number] Follow up in three days. Reason for referral: recheck today's concerns. Summary of care provided to patient via paper. ADDITIONAL INFORMATION Chest Pain, Uncertain Cause Chest pain can happen for a number of reasons. Sometimes the cause can not be determined. If yourcondition does not seem serious, and your pain does not appear to be coming from your heart, your doctor may recommend watching it closely. Sometimes the signs of a serious problem take more time to appear. Therefore, watch for the warning signs listed below. Home care After your visit, follow these recommendations: Rest today and avoid strenuous activity. Take any prescribed medicine as directed. Follow-up care Follow up with your doctor or this facility as instructed or if you do not start to feel better within 24 hours. Call 911 Get immediate medical attention if any of the following occur: A change in the type of pain: if it feels different, becomes more severe, lasts longer, or begins to spread into your shoulder, arm, neck, jaw or back Shortness of breath or increased pain with breathing Weakness, dizziness, or fainting Rapid heart beat Get prompt medical attention Call your doctor right away if any of the following occur: Cough with dark colored sputum (phlegm) or blood Fever of 100.4F(38C) or higher, or as directed by your health care provider Swelling, pain or redness in one leg High Blood Pressure --Established High Blood Pressure (Hypertension) is a chronic disease. The cause is unknown in most cases. It can usually be controlled with lifestyle changes and/or medicines. Symptoms of high blood pressure may include headache, dizziness, visual changes, chest pain and shortness of breath. Sometimes it causes no symptoms at all. However, even if there are no symptoms, untreated high blood pressure increases the risk of heart attack, also known as acute myocardial infarction, or AMI, and stroke. It is a serious health risk and should not be ignored. A normal blood pressure is 120/80 or less. The first (top) number is the "systolic" pressure. The second (bottom) number is the "diastolic" pressure. Hypertension exists when either the top number is 140 or higher, OR the bottom number is 90 or higher on repeated measurements. Home Care: All patients with high blood pressure should do the following to lower their pressure. If you are on medicines, then these methods may reduce or eliminate your need for medicines in the future. Begin a weight loss program if you are overweight. Reduce your salt intake. Avoid high salt foods (olives, pickles, smoked meats, salted potato chips, etc.). Do not add salt to your food at the table. Use only small amounts of salt when cooking. Begin an exercise program. Discuss with your doctor what type of exercise program would be best for you. It doesn't have to be difficult. Even brisk walking for 20 minutes three times a week is a good form of exercise. Avoid medicines which contain heart stimulants. This includes many cold and sinus decongestant pills and sprays as well as diet pills. Check the warnings about hypertension on the label. Stimulants such as amphetamine or cocaine could be lethal for someone with hypertension. Never take these. Limit your caffeine intake or switch to caffeine-free products. Stop smoking. If you are a long-time smoker, this can be hard. Enroll in a stop-smoking program to improve your chance of success. Learning how to handle stress better is an important part of any program to lower blood pressure. Learn about relaxation methods such as meditation, yoga or biofeedback. If medicines were prescribed, take them exactly as directed. Missing doses may cause your blood pressure get out of control. Consider buying an automatic blood pressure machine (available at most pharmacies). Use this to monitor your blood pressure at home and report the results to your doctor. Follow Up: Regular visits to your own physician for blood pressure checks and medicine adjustment is an important part of your care. Make a follow-up appointment as directed by our staff. Get Prompt Medical Attention if any of the following occur: Chest pain or shortness of breath Severe headache Throbbing or rushing sound in the ears Nosebleed Sudden severe abdominal pain Extreme drowsiness, confusion or fainting Dizziness or vertigo (dizziness with spinning sensation) Weakness of an arm or leg or one side of the face Difficulty with speech or vision Hypertension, Out Of Control (Established) Your blood pressure was unusually high today. This can occur as a result of missing doses of your blood pressure medicine. Some asthma inhalers, decongestants, diet pills, and street drugs such as cocaine and amphetamine can worsen hypertension. An increase in body weight, increase in salt intake, smoking, and caffeine are other causes. Emotional upset or acute pain can cause a sudden rapid rise in blood pressure which may return to normal after a period of rest. A normal blood pressure is less than 140/90. The first (top) number is the systolic pressure. The second (bottom) number is the diastolic pressure. Hypertension exists when either the top number is 140 or higher, OR the bottom number is 90 or higher on repeated measurements. Home Care: All patients with high blood pressure should do the following to lower their pressure. If you are on blood pressure medicines, then these methods may reduce or eliminate your need for medicines in the future. Begin a weight-loss program if you are overweight. Reduce your salt intake. Avoid high-salt foods (olives, pickles, smoked meats, salted potato chips, etc.). Do not add salt to your food at the table. Use only small amounts of salt when cooking. Begin an exercise program. Discuss with your doctor what type of exercise program would be best for you. It doesnt have to be difficult. Even brisk walking for 20 minutes3 times a week is a good form of exercise. Avoid medicines which contain heart stimulants. This includes many cold and sinus decongestant pills and sprays as well as diet pills. Check the warnings about hypertension on the label. Stimulants such as amphetamine or cocaine could be lethal for someone with hypertension. Never take these. Limit your caffeine intake or switch to decaf. Stop smoking. If you are a long-time smoker, this can be hard. Enroll in a stop-smoking program to improve your chance of success. Talk to your physician about ways to improve your chance of success. Learning how to handle stress better is an important part of any program to lower blood pressure. Learn about relaxation methods such as meditation, yoga, or biofeedback. If medicines were prescribed, take them exactly as directed. Missing doses may cause your blood pressure to get out of control. Consider buying an automatic blood pressure machine (available at many pharmacies). Use this to monitor your blood pressure and report to your doctor. Follow Up: Regular visits to your own doctor for blood pressure checks and medicine adjustment is an important part of your care. Make a follow-up appointment as directed by our staff. Get Prompt Medical Attention if any of the following occur: Chest, arm, shoulder, neck, or upper back pain Shortness of breath Severe headache Throbbing or rushing sound in the ears Nosebleed Extreme drowsiness, confusion, or fainting Dizziness or vertigo (dizziness with spinning sensation) Weakness of an arm or leg or one side of the face Difficulty with speech or vision You have been given the following additional information: Chest Pain, Uncertain Cause Hypertension, Established Hypertension, Established, Out Of Control (Electronically signed by Angel Luis Cardenas Dr. 11/21/2016 21:42)
== END 2016-11-15 04:05 | disposition home or self-care (01) ==
LOC: ED SRH 01:48
DX: R07.89 Other chest pain (principal); I10 Essential (primary) hypertension
CPT/HCPCS: 90100; 90616; 91556; 95059